=== PATIENT | male | born 1995 | race Caucasian/White ===

== ENCOUNTER 2022-02-07 20:01 | Emergency (ER) | payer OTHER ==
[~2022-02-07] VITALS: Ht 180.3 cm; Wt 81.6 kg
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
--- NOTE | 2022-02-07 20:24 | NUR ---
pt placed on the monitor, took bp. lapd here to question the pt. unit desigination is [id number] [address] [id number] [place] [id number]
--- NOTE | 2022-02-07 21:06 | NUR ---
Dr. Maurer at bedside for MSE.
--- NOTE | 2022-02-07 21:18 | NUR ---
call to radiology for cat scan.
--- NOTE | 2022-02-07 21:49 | NUR ---
pt taken to cat scan.
--- NOTE | 2022-02-07 22:05 | NUR ---
pt returned from cat scan.
[2022-02-07] MEDS ORDERED: HYDR-3980 PO (23:00)
--- NOTE | 2022-02-07 23:16 | NUR ---
Patient discharged to home in stable condition. Written and verbal after care instructions given. Patient verbalizes understanding of instructions. Stressed follow up or return to ER for worsening s/s.
[2022-02-07 23:18] VITALS: BP 127/82
== END 2022-02-07 23:18 | disposition home or self-care (01) ==
LOC: ER 20:07
DX: S05.11XA Contusion of eyeball and orbital tissues, right eye, initial encounter (principal); S01.111A Laceration without foreign body of right eyelid and periocular area, initial encounter; Y04.8XXA Assault by other bodily force, initial encounter; Y92.414 Local residential or business street as the place of occurrence of the external cause; Z59.02 Unsheltered homelessness; F17.210 Nicotine dependence, cigarettes, uncomplicated
CPT/HCPCS: 70486; A4663